=== PATIENT | female | born 1955 | race Caucasian/White ===

== ENCOUNTER 2017-03-10 19:31 | Inpatient (IN) | payer OTHER ==
[~2017-03-10] VITALS: Ht 167.6 cm; Wt 73.1 kg
[~2017-03-10 19:31] MED LIST: DOCU-144 PO; HYDR-2086 PO; MELO-110 PO; PANT40TA3 PO; VALS80TA2 PO; ZOF8 PO
[2017-03-10] MEDS ORDERED: METOPROLOL 25 MG TAB PO ONE (20:00)
[2017-03-10] MEDS ORDERED: METOPROLOL 5 MG INJ IV ONE ×2 (20:00→21:00)
[2017-03-10] MEDS ORDERED: ERGO500037 PO (20:05)
[2017-03-10] MEDS ORDERED: IBUP400T22 PO (20:05)
[2017-03-10] MEDS ORDERED: CLIN-73 PO (20:07)
[2017-03-10] MEDS ORDERED: ASPI-664 PO (20:08)
[2017-03-10] MEDS ORDERED: CARV12.579 PO (20:08)
[2017-03-10] MEDS ORDERED: ATOR20TA38 PO (20:09)
[2017-03-10] MEDS ORDERED: LOSA50TA6 PO (20:09)
[2017-03-10] MEDS ORDERED: FENO145T19 PO (20:10)
[2017-03-10 20:20] LABS: ADD SCAN DIFF NO
[2017-03-10 20:25] LABS: BASOPHIL # 0.1 10^3/ul (0.0-0.1); BASOPHILS % 0.9 % (0.0-2.0); EOSINOPHILS # 0.1 10^3/ul (0.0-0.5); EOSINOPHILS % 0.5 % (0.0-7.0); HEMATOCRIT 38.7 % (37.0-47.0); HEMOGLOBIN 12.8 g/dl (12.0-16.0); LYMPHOCYTES # 2.7 10^3/ul (0.8-2.9); MEAN CORPUSCULAR HEMOGLOBIN 28.4 pg (29.0-33.0); MEAN CORPUSCULAR HGB CONC 33.1 g/dl (32.0-37.0); MEAN CORPUSCULAR VOLUME 85.8 fl (82.0-101.0); MEAN PLATELET VOLUME 10.1 fl (7.4-10.4); MONOCYTE # 0.7 10^3/ul (0.3-0.9); MONOCYTES % 7.5 % (0.0-11.0); NEUTROPHIL # 5.8 10^3/ul (1.6-7.5); NEUTROPHILS % 61.8 % (39.0-77.0); PLATELET COUNT 323 10^3/UL (140-415); RED BLOOD COUNT 4.51 10^6/ul (4.20-5.40); RED CELL DISTRIBUTION WIDTH 12.3 % (11.5-14.5); WHITE BLOOD COUNT 9.3 10^3/ul (4.8-10.8)
[2017-03-10 20:45] LABS: INR 0.94; PROTIME 12.6 Sec (12.2-14.2)
[2017-03-10 20:46] LABS: PARTIAL THROMBOPLASTIN TIME 28.9 Sec (25.0-35.0)
[2017-03-10 20:48] LABS: ANION GAP 19 (8-16); BLOOD UREA NITROGEN 26 mg/dl (7-20); CALCIUM 9.9 mg/dl (8.4-10.2); CARBON DIOXIDE 24 mmol/L (21-31); CHLORIDE 107 mmol/L (97-110); CREATININE 1.05 mg/dl (0.44-1.00); GLUCOSE 146 mg/dl (70-220); MAGNESIUM 2.1 mg/dl (1.7-2.5); POTASSIUM 3.6 mmol/L (3.5-5.1); SODIUM 146 mmol/L (135-144)
--- NOTE | 2017-03-10 20:51 | RADRPT ---
PROCEDURE: XR Chest. CLINICAL INDICATION: Chest pain. TECHNIQUE: Single frontal view. COMPARISON: None. FINDINGS: The lungs are clear. The heart size is normal. There is no pleural effusion. There is no pneumothorax. IMPRESSION: 1. Normal chest radiograph. RPTAT: QQ .Steev Rich MD, Date Time Electronically viewed and signed by .Steve Rich MD, on 03/10/2017 20:51 .R/
[2017-03-10 21:00] LABS: TROPONIN-I < 0.012 ng/ml (0.00-0.12)
[2017-03-10] MEDS ORDERED: DILTIAZEM-D5W 125MG/125ML DRIP 125 ML IV STA (22:09)
--- NOTE | 2017-03-10 22:18 | ERA ---
ER Documentation Chief Complaint Date/Time DATE: 03/10/17 TIME: 22:11 Chief Complaint chest throbbing nonradiating pain HPI Patient is a 61-year-old female with hypertension who presents with rapid heart rate. The patient said that she did not take her heart medications this morning because her blood pressure was normal. She felt overwhelmed due to her daughter visiting and at 5:30 PM she felt very dizzy. She turned white and had significant sweating. She had nausea and vomiting. She had chills palpitations. She has had no treatment as of yet. Her primary doctor is Dr. Sharma. ROS All systems reviewed and are negative except as per history of present illness. Medications Home Meds Reported Medications Fenofibrate Nanocrystallized* (Fenofibrate*) 145 Mg Tablet, 145 MG PO DAILY, TAB 03/10/17 Atorvastatin Calcium* (Atorvastatin Calcium*) 20 Mg Tablet, 20 MG PO DAILY, #30 TAB 03/10/17 Losartan Potassium* (Losartan Potassium*) 50 Mg Tablet, 50 MG PO DAILY, TAB 03/10/17 Carvedilol* (Carvedilol*) 12.5 Mg Tablet, 12.5 MG PO BID, #60 TAB 03/10/17 Aspirin* (Aspirin* EC) 81 Mg Tablet.dr, 81 MG PO DAILY, TAB 03/10/17 Clindamycin Hcl* (Clindamycin Hcl*) 300 Mg Capsule, 300 MG PO TID for 7 Days, # 21 CAP STOP TAKING 03/10/17 03/10/17 Ibuprofen* (Ibuprofen*) 400 Mg Tablet, 400 MG PO Q6H Y for PAIN, TAB 03/10/17 Ergocalciferol (Vitamin D2) (VITAMIN D2) 50,000 Unit Capsule, 35785 UNIT PO Q7D , CAP 03/10/17 Docusate Sodium* (Colace*) 100 Mg Capsule, 100 MG PO DAILY, CAP 05/03/15 Discontinued Reported Medications Meloxicam* (Mobic*) 15 Mg Tablet, 15 MG PO DAILY, TAB 05/03/15 Valsartan* (Diovan*) 80 Mg Tablet, 80 MG PO DAILY, TAB 05/03/15 Discontinued Scripts Hydrocodone Bit-Acetaminophen* (Vicodin*) 5-300 Tab, 1 EACH PO Q4H Y for PAIN, # 10 TAB Prov:ABIMAEL DO MD 05/03/15 Ondansetron Hcl* (Zofran* ODT) 8 mg -ODT Tab.disper, 8 MG PO Q6 Y for NAUSEA AND /OR VOMITING, #10 TAB Prov:ABIMAEL DO MD 05/03/15 Pantoprazole* (Protonix*) 40 Mg Tablet.dr, 40 MG PO DAILY, #20 TAB Prov:ABIMAEL DO MD 05/03/15 Allergies Allergies: Coded Allergies: No Known Allergies (Verified Allergy, Mild, 03/10/17) PMhx/Soc History of Surgery: Yes (APPENDECTOMY,REMOVAL OF CYST ON R BREAST, TUBAL LIGATION) Anesthesia Reaction: No Hx Neurological Disorder: No Hx Respiratory Disorders: Yes (ASTHMA) Hx Cardiac Disorders: Yes (HTN,HIGH CHOLESTEROL) Hx Psychiatric Problems: No Hx Miscellaneous Medical Probl: Yes (SKIN CANCER (NOSE) CARCINOMA?, ARTHRITIS) Hx Alcohol Use: Yes (occasionally) Hx Substance Use: No Hx Tobacco Use: Yes (quit) Smoking Status: Former smoker FmHx Family History: coronary disease, No diabetes Physical Exam Vitals Vital Signs Date Time Temp Pulse Resp B/P Pulse Ox O2 Delivery O2 Flow Rate FiO2 03/10/17 21:00 144 15 122/112 99 Nasal Cannula 2.0 03/10/17 20:46 154 12 101/84 100 Nasal Cannula 2.0 03/10/17 20:30 148 22 96/80 98 Nasal Cannula 2.0 03/10/17 20:15 169 26 104/77 99 Nasal Cannula 2.0 03/10/17 20:09 Nasal Cannula 2 03/10/17 20:00 204 20 103/77 100 Nasal Cannula 2.0 03/10/17 19:51 98.2 212 18 119/69 100 Physical Exam Const: Moderate distress Head: Atraumatic Eyes: Normal Conjunctiva ENT: Normal External Ears, Nose and Mouth. Neck: Full range of motion..~ No meningismus. Resp: Clear to auscultation bilaterally Cardio: Tachycardic rate, irregular, without murmur Abd: Soft, non tender, non distended. Normal bowel sounds Skin: No petechiae or rashes Back: No midline or flank tenderness Ext: No cyanosis, or edema Neur: Awake and alert Psych: Normal Mood and Affect Result Diagram: 03/10/17200403/10/172004 Results 24 hrs Laboratory Tests Test 03/10/17 20:05 White Blood Count 9.310^3/ul Red Blood Count 4.5110^6/ul Hemoglobin 12.8g/dl Hematocrit 38.7% Mean Corpuscular Volume 85.8fl Mean Corpuscular Hemoglobin 28.4pg Mean Corpuscular Hemoglobin Concent 33.1g/dl Red Cell Distribution Width 12.3% Platelet Count 85953^3/UL Mean Platelet Volume 10.1fl Neutrophils % 61.8% Lymphocytes % 29.0% Monocytes % 7.5% Eosinophils % 0.5% Basophils % 0.9% Nucleated Red Blood Cells % 0.0/100WBC Neutrophils # 5.810^3/ul Lymphocytes # 2.710^3/ul Monocytes # 0.710^3/ul Eosinophils # 0.110^3/ul Basophils # 0.110^3/ul Nucleated Red Blood Cells # 0.010^3/ul Prothrombin Time 12.6Sec Prothrombin Time Ratio 1.0 INR International Normalized Ratio 0.94 Activated Partial Thromboplast Time 28.9Sec Sodium Level 146mmol/L Potassium Level 3.6mmol/L Chloride Level 107mmol/L Carbon Dioxide Level 24mmol/L Anion Gap 19 Blood Urea Nitrogen 26mg/dl Creatinine 1.05mg/dl Glucose Level 146mg/dl Calcium Level 9.9mg/dl Magnesium Level 2.1mg/dl Troponin I < 0.012ng/ml Thyroid Stimulating Hormone (TSH) 1.110MIU/L Free Thyroxine 1.11ng/dl Current Medications Medications (Trade) Dose Ordered Sig/Yanna Route PRN Reason Start Time Stop Time Status Last Admin Dose Admin Metoprolol Tartrate (Lopressor) 5 mg ONCE ONCE IV 03/10/17 20:00 03/10/17 20:01 DC 03/10/17 20:13 Metoprolol Tartrate (Lopressor) 25 mg ONCE ONCE PO 03/10/17 20:00 03/10/17 20:01 DC 03/10/17 20:17 Metoprolol Tartrate 5 mg 5 mg ONCE ONCE IV 03/10/17 21:00 03/10/17 21:01 DC 03/10/17 20:51 Diltiazem HCl (Cardizem-D5W 125 Mg/125 ml Drip) 125 ml @ 5 mls/hr ONCE STAT IV 03/10/17 22:09 03/11/17 23:08 Procedures/MDM EKG #1 read by me: Rate/Rhythm: Atrial fibrillation with rapid ventricular response Intervals: Normal Impression: A. fib with RVR without ischemia EKG #2 read by me: Rate/Rhythm: Atrial fibrillation with rapid ventricular response Intervals: Normal Impression: A. fib with RVR without ischemia Chest x-ray shows no pneumonia or pneumothorax per radiology. Patient is a 61-year-old female with hypertension who presents with new onset atrial fibrillation. She also has atrial fibrillation with rapid ventricular response. She was given 2 doses of metoprolol without much effect. She needs to be placed on a diltiazem drip. She will need admission to the hospital for rate control and possibly rhythm control. I spoke with Dr. Alberto as the patient has reg[employer] insurance and the patient will be admitted to a telemetry bed. I spoke with Dr. Williamson for consultation. I doubt acute coronary syndrome, pneumonia, pneumothorax, pulmonary embolism, or aortic dissection. Critical Care: Time: 35 minutes excluding all billable procedures. Treatments/Evaluations: Close monitoring and treatment of unstable vital signs, cardiorespiratory, and neurologic status, while maintaining tight balance of fluid, respiratory, and cardiac interventions. Departure Diagnosis: Primary Impression: Chest pain Qualified Code: R07.9 - Chest pain, unspecified type Additional Impressions: New onset atrial fibrillation Atrial fibrillation with rapid ventricular response Condition: CHEVY Liu MD Mar 10, 2017 22:18
[2017-03-10] MEDS ORDERED: ONDANSETRON 4 MG INJ IV PRN ×2 (22:30→23:30)
[2017-03-10] MEDS ORDERED: ACETAMINOPHEN 500 MG TAB PO PRN (23:30)
[2017-03-10 23:48] VITALS: PULSE 161
[2017-03-10 23:49] VITALS: BP 99/67; PULSE 142; RESP 17
[2017-03-10 23:55] VITALS: Ht 167.6 cm; Wt 73.1 kg
[2017-03-11] VITALS (14 sets, daily range): BP systolic 95–131; BP diastolic 51–82; PULSE 64–144; RESP 19–22
[2017-03-11] MEDS: 1/2 NS + KCL 20 MEQ 1,000 ML IV SCH ×3 (01:02→12:32)
[2017-03-11] MEDS: ZOLPIDEM 5 MG TAB PO PRN ×2 (01:02→22:07)
[2017-03-11] MEDS: ENOXAPARIN 80 MG/0.8 ML SYG SC SCH ×2 (01:12→08:42)
[2017-03-11 03:18] LABS: CK-MB 2.1 ng/ml (0.0-2.4); TROPONIN-I 0.049 ng/ml (0.00-0.12)
[2017-03-11 09:22] LABS: CK-MB 1.79 ng/ml (0.0-2.4); TROPONIN-I 0.055 ng/ml (0.00-0.12)
[2017-03-11] MEDS: ACETAMINOPHEN 325 MG TAB PO PRN ×2 (09:53→17:02)
--- NOTE | 2017-03-11 10:38 | RADRPT ---
Vent Rate: 122 bpm RR Interval: 0 msec DC Interval: 0 msec QRS Duration: 76 msec QT Interval: 300 msec QTC Interval: 427 msec P-R-T [place]: 0 - 38 - 7 degrees Atrial fibrillation with rapid ventricular response Abnormal ECG Electronically Signed By: Elliot Watkins [id number]
--- NOTE | 2017-03-11 12:57 | RADRPT ---
Echocardiogram Report Patient Name: SOFYA JACKSON Gender: Female Date: 1955 Study Date: 11-Mar-2017 Ems Driver: Scottie [facility] Location: 5540 Ref. Physician: MACKENZIE LUGO Quality: Adequate Procedures: Transthoracic echocardiogram with complete 2D, M-Mode, and doppler examination. Indications: New-onset a-fib/flutter. 2D/M Mode Doppler Measurement Value Normal Ranges Measurement Value Normal Ranges LVIDd 2D 3.5 3.5 - 5.6 cm AV Peak Alexander 1.4 m/sec LVIDs 2D 2.8 2.1 - 4.1 cm AV Peak PG 7.4 mmHg LVPWd 2D 1.2 0.6 - 1.1 cm LVOT Peak Alexander 0.9 m/sec IVSd 2D 1.2 0.6 - 1.1 cm LVOT Peak PG 3.2 mmHg AoR Diam 2D 2.9 2.0 - 3.7 cm TR Peak Alexander 2.4 m/sec EDV 2D 50.0 cm3 TR Peak PG 23.6 mmHg ESV 2D 21.5 cm3 RVSP 27.0 mmHg LA Dimen 2D 3.2 2.3 - 4.0 cm Findings Left Ventricle: Normal left ventricular systolic function. Normal left ventricular cavity size. Mild concentric left ventricular hypertrophy. Ejection fraction is visually estimated at 60 %. Abnormal Diastolic Function. Right Ventricle: Normal right ventricular size. Normal right ventricular systolic function. Left Atrium: The left atrium is normal in size. Right Atrium: The right atrium is normal in size. Mitral Valve: Mild mitral leaflet calcification. Mild mitral annular calcification. Mild mitral valve regurgitation. Aortic Valve: Normal appearance of the aortic valve. No significant aortic stenosis or insufficiency. Tricuspid Valve: Normal appearance of the tricuspid valve. Estimated peak PA systolic pressure 27 mmHg. There is mild to moderate tricuspid regurgitation. Pericardium: Normal pericardium with no significant pericardial effusion. Aorta: Normal aortic root. IVC: Normal size and normal respiratory collapse consistent with normal right atrial pressure. Conclusions Normal left ventricular systolic function. Normal left ventricular cavity size. Mild concentric left ventricular hypertrophy. Ejection fraction is visually estimated at 60 %. Abnormal Diastolic Function. Normal right ventricular size. Normal right ventricular systolic function. The left atrium is normal in size. The right atrium is normal in size. Mild mitral valve regurgitation. No significant aortic stenosis or insufficiency. Estimated peak PA systolic pressure 27 mmHg. There is mild to moderate tricuspid regurgitation. Normal pericardium with no significant pericardial effusion. Electronically Signed By: Derick Guidry 11-Mar-2017 12:56:12 -0700 Patient Name: SOFYA JACKSON Study Date: 11-Mar-2017 [id number]
--- NOTE | 2017-03-11 13:02 | HP ---
Date/Time of Note Date/Time of Note DATE: 03/11/17 TIME: 12:59 Assessment/Plan VTE Prophylaxis VTE Prophylaxis Intervention: LMWH Lines/Catheters IV Catheter Type (from Nrsg): Peripheral IV Urinary Cath still in place: No Assessment/Plan Assessment/Plan 1. a fib, relatively normal echo, cont rate control (b) plan anticoag asa vs other, await cardiology opinion 2. L leg sciatica, weight loss and strengthening recommended 3. proph: lovenox HPI/ROS Admit Date/Time Admit Date/Time Mar 10, 2017 at 22:10 Hx of Present Illness patient with dizziness,adn palpitations, felt unwell, then came to er denies specific chesst pain ROS 5 systems reviewd found to be revealing only for L leg sciatica PMH/Family/Social Past Medical History 1. sciatica 2. htn Past Surgical History 1. hysterectom y Social History Alcohol Use: rarely Smoking Status: Never smoker Drug Use: none Exam/Review of Systems Vital Signs Vitals Vital Signs Date Time Temp Pulse Resp B/P Pulse Ox O2 Delivery O2 Flow Rate FiO2 03/11/17 12:27 99 03/11/17 12:10 98.0 20 118/81 96 03/11/17 00:05 Nasal Cannula 2.0 Intake and Output 03/10/17 03/10/17 03/11/17 15:00 23:00 07:00 Intake Total 850 ml Balance 850 ml Exam Constitutional: alert, oriented Head: atraumatic, normocephalic ENMT: mucosa pink and moist, nl nasal mucosa & septum Neck: non-tender, supple Respiratory: clear to auscultation Cardiovascular: irregular rhythm Gastrointestinal: non-tender, soft Extremities: normal pulses Neurological: [employer] II-XII intact, nl strength Labs Result Diagram: 03/10/17200403/10/172004 Medications Medications Current Medications Potassium Chloride/Sodium Chloride (1/2 NS + KCl 20 Meq) 1,000 ml @ 100 mls/hr Q10H IV Last administered on 03/11/17t 12:32; Admin Dose 100 MLS/HR; Start at 23:30 Ondansetron HCl (Zofran Inj) 4 mg Q6H PRN IV NAUSEA AND/OR VOMITING; Start at 23:30 Acetaminophen (Tylenol Tab) 1,000 mg Q6H PRN PO FEVER GREATER THAN 100.6; Start 03/10/17 at 23:30 Enoxaparin Sodium (Lovenox) 75 mg Q12 SC Last administered on 03/11/17t 08:42; Admin Dose 75 MG; Start 03/10/17 at 23:30 BONNIE HARTMANN MD Mar 11, 2017 13:02
[2017-03-11] MEDS ORDERED: DILTIAZEM (CD) 120 MG CAP PO SCH (13:18)
--- NOTE | 2017-03-11 13:30 | CONS ---
Date/Time of Note Date/Time of Note DATE: 03/11/17 TIME: 13:22 Assessment/Plan Assessment/Plan Additional Assessment/Plan Atrial fibrillation with rapid ventricular rates, improved Preserved left ventricular systolic function with mild left ventricular hypertrophy Mitral and tricuspid valve regurgitation Hypertension Anxiety Depression Fibromyalgia -Patient with improvement in heart rates on IV Cardizem. Currently on 5 mg an hour. Would start p.o. Cardizem and DC IV. Would hold other antihypertensive medications at the current time given current blood pressure trend. Extensive discussion had with her patient regarding risk of increased thromboembolic events in the setting of atrial fibrillation. Patient agreed with anticoagulation. Will start Eliquis 5 mg twice daily. Case management for insurance approval. If heart rates well controlled on oral medication regimen and patient remains asymptomatic, no further inpatient cardiac workup needed. Consultation Date/Type/Reason Admit Date/Time Mar 10, 2017 at 22:10 Type of Consultation: cv Reason for Consultation Palpitations Hx of Present Illness This is a 61-year-old female with past medical history of hypertension, anxiety , depression, fibromyalgia who presents with palpitations and dizziness yesterday afternoon. Patient under significant stress over the past few days with family visiting as well as recent . Yesterday, anxiety increased and she had onset of palpitations associated with dizziness and lightheadedness. She then felt nauseous with vomiting. She was brought to the emergency room and found to be in atrial fibrillation with rapid ventricular rates. With IV Cardizem, her rates improved as well as her symptoms. She currently denies any chest pain, palpitations or shortness of breath and feeling much better. She denies any dizziness or lightheadedness. 12 point review of systems was performed with all pertinent positives and negatives mentioned above and all else is negative Past Medical History Depression Anxiety Fibromyalgia Medical History: hypertension Past Surgical History Multiple B[employer] surgeries, skin cancer removal 19 years ago, orthopedic surgery, appendectomy Family History Significant Family History: no pertinent family hx Social History Alcohol Use: rarely Smoking Status: Never smoker Drug Use: none Other Social History Lives at home Exam/Review of Systems Vital Signs Vitals Vital Signs Date Time Temp Pulse Resp B/P Pulse Ox O2 Delivery O2 Flow Rate FiO2 03/11/17 12:27 99 03/11/17 12:10 98.0 20 118/81 96 03/11/17 00:05 Nasal Cannula 2.0 Intake and Output 03/10/17 03/10/1703/11/17 15:00 23:00 07:00 Intake Total 850 ml Balance 850 ml Exam Eating lunch, no apparent distress, daughter at bedside Constitutional: alert, oriented, well developed Head: normocephalic Neck: supple Respiratory: other (Coarse breath sounds bilaterally, no wheezing) Cardiovascular: irregular rhythm, other (S1-S2 heard), systolic murmur Gastrointestinal: bowel sounds, non-tender, other (No guarding), soft Extremities: edema (No edema or cyanosis seen) Results Result Diagram: 03/10/17200403/10/172004 Results 24 hrs Laboratory Tests Test 03/10/17 20:05 03/11/17 02:10 03/11/17 07:55 White Blood Count 9.3 Red Blood Count 4.51 Hemoglobin 12.8 Hematocrit 38.7 Mean Corpuscular Volume 85.8 Mean Corpuscular Hemoglobin 28.4 L Mean Corpuscular Hemoglobin Concent 33.1 Red Cell Distribution Width 12.3 Platelet Count 323 Mean Platelet Volume 10.1 # Neutrophils % 61.8 Lymphocytes % 29.0 Monocytes % 7.5 Eosinophils % 0.5 Basophils % 0.9 Nucleated Red Blood Cells % 0.0 Neutrophils # 5.8 Lymphocytes # 2.7 Monocytes # 0.7 Eosinophils # 0.1 Basophils # 0.1 Nucleated Red Blood Cells # 0.0 Prothrombin Time 12.6 Prothrombin Time Ratio 1.0 INR International Normalized Ratio 0.94 Activated Partial Thromboplast Time 28.9 Sodium Level 146 H Potassium Level 3.6 Chloride Level 107 Carbon Dioxide Level 24 Anion Gap 19 H Blood Urea Nitrogen 26 H Creatinine 1.05 H Glucose Level 146 Calcium Level 9.9 Magnesium Level 2.1 Troponin I < 0.012 0.049 0.055 Thyroid Stimulating Hormone (TSH) 1.110 Free Thyroxine 1.11 Creatine Kinase 107 87 Creatine Kinase Index 2.0 2.1 Creatinine Kinase MB (Mass) 2.10 1.79 Medications Medications Current Medications Potassium Chloride/Sodium Chloride (1/2 NS + KCl 20 Meq) 1,000 ml @ 100 mls/hr Q10H IV Last administered on 03/11/17t 12:32; Admin Dose 100 MLS/HR; Start at 23:30 Ondansetron HCl (Zofran Inj) 4 mg Q6H PRN IV NAUSEA AND/OR VOMITING; Start at 23:30 Acetaminophen (Tylenol Tab) 1,000 mg Q6H PRN PO FEVER GREATER THAN 100.6; Start 03/10/17 at 23:30 Diltiazem HCl (Cardizem Cd) 120 mg BID PO ; Start 03/11/17 at 21:00; Status UNV Diltiazem HCl (Cardizem Cd) 120 mg 1318 ONCE PO ; Start 03/11/17 at 13:18; Stop 03/11/17 at 13:19; Status UNV Apixaban (Eliquis) 5 mg BID PO ; Start 03/11/17 at 21:00; Status UNV Procedures Procedures ECG done this morning demonstrated atrial fibrillation at 122 bpm, QRS 76 ms, nonspecific ST-T wave abnormality Derick Guidry DO Mar 11, 2017 13:30
[2017-03-11] MEDS: APIXABAN 5 MG TABLET PO SCH (20:33)
[2017-03-11] MEDS: DILTIAZEM (CD) 120 MG CAP PO SCH (20:34)
[2017-03-12] VITALS (7 sets, daily range): BP systolic 103–130; BP diastolic 65–70; PULSE 60–82; RESP 18–21
[2017-03-12] MEDS: 1/2 NS + KCL 20 MEQ 1,000 ML IV SCH (05:30)
[2017-03-12] MEDS: DILTIAZEM (CD) 120 MG CAP PO SCH (08:52)
[2017-03-12] MEDS: APIXABAN 5 MG TABLET PO SCH (08:52)
[2017-03-12] MEDS: POLYETHYLENE GLYCOL 17 GM PACKET PO SCH ×2 (10:53→10:58)
--- NOTE | 2017-03-12 11:28 | CONS ---
Date/Time of Note Date/Time of Note DATE: 03/12/17 TIME: 11:26 Assessment/Plan Assessment/Plan Additional Assessment/Plan Paroxysmal atrial fibrillation with rapid ventricular rates, currently sinus rhythm Preserved left ventricular systolic function with mild left ventricular hypertrophy Mitral and tricuspid valve regurgitation Hypertension Anxiety Depression Fibromyalgia -Patient converted to sinus rhythm yesterday. Heart rate well controlled in sinus. Blood pressure trend remained stable. Would DC home on Cardizem 180 mg daily, would DC home dose of Coreg. Consider losartan at a lower dose if blood pressure tolerates. I have requested case management involvement for approval of anticoagulation. Otherwise no further inpatient cardiac workup needed at the current time. Consultation Date/Type/Reason Admit Date/Time Mar 10, 2017 at 22:10 Initial Consult Date Type of Consultation: cv 24 HR Interval Summary Free Text/Dictation Feeling better, denies chest pain or shortness of breath or palpitations Exam/Review of Systems Vital Signs Vitals Vital Signs Date Time Temp Pulse Resp B/P Pulse Ox O2 Delivery O2 Flow Rate FiO2 03/12/17 08:36 98.0 66 18 130/69 98 03/11/17 00:05 Nasal Cannula 2.0 Intake and Output 03/11/17 03/11/17 03/12/17 15:00 23:00 07:00 Intake Total 620 ml Balance 620 ml Exam No apparent distress Constitutional: alert, oriented Head: normocephalic Neck: supple Respiratory: clear to auscultation, normal air movement Cardiovascular: other (S1-S2 heard), regular rate and rhythm Gastrointestinal: bowel sounds, non-tender, soft Extremities: other (No edema) Results Result Diagram: 03/10/17200403/10/172004 Medications Medications Current Medications Potassium Chloride/Sodium Chloride (1/2 NS + KCl 20 Meq) 1,000 ml @ 100 mls/hr Q10H IV Last administered on 03/11/17t 12:32; Admin Dose 100 MLS/HR; Start at 23:30 Ondansetron HCl (Zofran Inj) 4 mg Q6H PRN IV NAUSEA AND/OR VOMITING; Start at 23:30 Acetaminophen (Tylenol Tab) 1,000 mg Q6H PRN PO FEVER GREATER THAN 100.6; Start 03/10/17 at 23:30 Diltiazem HCl (Cardizem Cd) 120 mg BID PO Last administered on 03/12/17 08:52 ; Admin Dose 120 MG; Start 03/11/17 at 21:00 Apixaban (Eliquis) 5 mg BID PO Last administered on 03/12/17 08:52; Admin Dose 5 MG; Start 03/11/17 at 21:00 Polyethylene Glycol (Miralax) 17 gm DAILY PO ; Start 03/12/17 at 11:00 Derick Guidry DO Mar 12, 2017 11:28
--- NOTE | 2017-03-12 12:19 | PDOCDIS ---
Discharge Instructions CONDITION Patient Condition: Good HOME CARE INSTRUCTIONS: Diet Instructions: 2gm NaSpecial Diet: cardiac diet ACTIVITY: Activity Restrictions: Slowly Increase Activity SCHOOL/WORK RELEASE May return to School/Work with: No Restrictions BONNIE HARTMANN MD Mar 12, 2017 12:19
--- NOTE | 2017-03-12 12:19 | PN ---
Date/Time of Note Date/Time of Note DATE: 03/12/17 TIME: 12:18 Assessment/Plan VTE Prophylaxis VTE Prophylaxis Intervention: ambulation Lines/Catheters IV Catheter Type (from Nrs): Peripheral IV Urinary Cath still in place: No Assessment/Plan Assessment/Plan 1. cards: paroxysmal a fib , no wspont covert to ns, d/c home with dilt Subjective 24 Hr Interval Summary Free Text/Dictation no complaints, doing well Exam/Review of Systems Vital Signs Vitals Vital Signs Date Time Temp Pulse Resp B/P Pulse Ox O2 Delivery O2 Flow Rate FiO2 03/12/17 11:43 98.1 67 18 127/70 98 03/11/17 00:05 Nasal Cannula 2.0 Intake and Output 03/11/17 03/11/17 03/12/17 15:00 23:00 07:00 Intake Total 620 ml Balance 620 ml Exam Constitutional: alert Respiratory: clear to auscultation Cardiovascular: regular rate and rhythm Results Result Diagram: 03/10/17200403/10/172004 Medications Medications Current Medications Potassium Chloride/Sodium Chloride (1/2 NS + KCl 20 Meq) 1,000 ml @ 100 mls/hr Q10H IV Last administered on 03/11/17 12:32; Admin Dose 100 MLS/HR; Start at 23:30 Ondansetron HCl (Zofran Inj) 4 mg Q6H PRN IV NAUSEA AND/OR VOMITING; Start at 23:30 Acetaminophen (Tylenol Tab) 1,000 mg Q6H PRN PO FEVER GREATER THAN 100.6; Start 03/10/17 at 23:30 Diltiazem HCl (Cardizem Cd) 120 mg BID PO Last administered on 03/12/17 08:52 ; Admin Dose 120 MG; Start 03/11/17 at 21:00 Apixaban (Eliquis) 5 mg BID PO Last administered on 03/12/17 08:52; Admin Dose 5 MG; Start 03/11/17 at 21:00 Polyethylene Glycol (Miralax) 17 gm DAILY PO ; Start 03/12/17 at 11:00 BONNIE HARTMANN MD Mar 12, 2017 12:18
[2017-03-12] MEDS ORDERED: APIX5TAB PO (12:21)
[2017-03-12] MEDS ORDERED: DILT180C75 PO (12:21)
--- NOTE | 2017-03-12 12:23 | DS ---
Date/Time of Note Date/Time of Note DATE: 03/12/17 TIME: 12:22 Discharge Summary Admission/Discharge Info Admit Date/Time Mar 10, 2017 at 22:10 Discharge Date/Time 03/12/2017 Discharge Diagnosis 1/ paroxysmal atrial fibrillation, spontaneously converted to normal sinus rhythm Patient Condition: Good Hx of Present Illness patient with dizziness,adn palpitations, felt unwell, then came to er denies specific chesst pain Hospital Course juan carlos admrobertde with a fib in ra[piod response, was commenced on diltiazem, rate controlled and psontaneously converted to sinus rhythm. Her echo was unremarkable Home Meds Active Scripts Diltiazem Hcl* (Cardizem CD*) 180 Mg Cap.sr.24h, 180 MG PO DAILY for 30 Days, # 30 CAP Prov:BONNIE HARTMANN MD 03/12/17 Apixaban* (Eliquis*) 5 Mg Tablet, 5 MG PO BID for 30 Days, #60 TAB Prov:BONNIE HARTMANN MD 03/12/17 Reported Medications Fenofibrate Nanocrystallized* (Fenofibrate*) 145 Mg Tablet, 145 MG PO DAILY, TAB 03/10/17 Atorvastatin Calcium* (Atorvastatin Calcium*) 20 Mg Tablet, 20 MG PO DAILY, #30 TAB 03/10/17 Losartan Potassium* (Losartan Potassium*) 50 Mg Tablet, 50 MG PO DAILY, TAB 03/10/17 Carvedilol* (Carvedilol*) 12.5 Mg Tablet, 12.5 MG PO BID, #60 TAB 03/10/17 Aspirin* (Aspirin* EC) 81 Mg Tablet.dr, 81 MG PO DAILY, TAB 03/10/17 Clindamycin Hcl* (Clindamycin Hcl*) 300 Mg Capsule, 300 MG PO TID for 7 Days, # 21 CAP STOP TAKING 03/10/17 03/10/17 Ibuprofen* (Ibuprofen*) 400 Mg Tablet, 400 MG PO Q6H Y for PAIN, TAB 03/10/17 Ergocalciferol (Vitamin D2) (VITAMIN D2) 50,000 Unit Capsule, 41975 UNIT PO Q7D , CAP 03/10/17 Docusate Sodium* (Colace*) 100 Mg Capsule, 100 MG PO DAILY, CAP 05/03/15 Discontinued Reported Medications Meloxicam* (Mobic*) 15 Mg Tablet, 15 MG PO DAILY, TAB 05/03/15 Valsartan* (Diovan*) 80 Mg Tablet, 80 MG PO DAILY, TAB 05/03/15 Discontinued Scripts Hydrocodone Bit-Acetaminophen* (Vicodin*) 5-300 Tab, 1 EACH PO Q4H Y for PAIN, # 10 TAB Prov:ABIMAEL DO MD 05/03/15 Ondansetron Hcl* (Zofran* ODT) 8 mg -ODT Tab.disper, 8 MG PO Q6 Y for NAUSEA AND /OR VOMITING, #10 TAB Prov:ABIMAEL DO MD 05/03/15 Pantoprazole* (Protonix*) 40 Mg Tablet., 40 MG PO DAILY, #20 TAB Prov:ABIMAEL DO MD 05/03/15 Follow-up Plan 1. pcp 1 to [address] hernandez next available Primary Care Provider Senthil Chance Time spent on discharge: > 30 minutes BONNIE HARTMANN MD Mar 12, 2017 12:23
== END 2017-03-12 13:54 | disposition home or self-care (01) | DRG 310 ==
LOC: E/R 19:31 → MS4 22:10
PROVIDERS: ADMIT Internal Medicine; ATTEND Internal Medicine
DX: I48.0 Paroxysmal atrial fibrillation (principal); I08.1 Rheumatic disorders of both mitral and tricuspid valves; I10 Essential (primary) hypertension; E78.5 Hyperlipidemia, unspecified; M54.32 Sciatica, left side; F41.9 Anxiety disorder, unspecified; F32.9 Major depressive disorder, single episode, unspecified; M79.7 Fibromyalgia; Z79.82 Long term (current) use of aspirin; Z79.02 Long term (current) use of antithrombotics/antiplatelets; Z87.891 Personal history of nicotine dependence; Z85.828 Personal history of other malignant neoplasm of skin
CPT/HCPCS: 36415; 71010; 80048; 82550; 82553; 83735; 84439; 84443; 84484; 85025; 85610; 85730; 93005; 93306; 96374; 96375; 96376; J2405; J3480

== ENCOUNTER 2017-07-18 11:52 | Emergency (ER) | payer MEDICARE, OTHER ==
[~2017-07-18] VITALS: Wt 68.6 kg
[~2017-07-18 11:52] MED LIST changes: +APIX5TAB PO; +ATOR20TA38 PO; +DILT180C75 PO; +ERGO500037 PO; +FENO145T19 PO; -HYDR-2086 PO; +IBUP400T22 PO; +LOSA50TA6 PO; -MELO-110 PO; -PANT40TA3 PO; -VALS80TA2 PO; -ZOF8 PO
--- NOTE | 2017-07-18 12:41 | ERD ---
ER Documentation Chief Complaint Chief Complaint states bleeding frm varicose vein rle, on blood thnr, bleeding controlled. HPI This is a 62-year-old female presents the emergency room with from a varicose vein to the medial aspect of the right lower extremity. The patient is currently taking Eliquis for A. fib. She denies any other bleeding or bruising. She denies any recent falls or trauma. She had bleeding on Wednesday and bleeding again today when she tried to take a warm bath. The bleeding is controlled at this point. ROS All systems reviewed and are negative except as per history of present illness. Medications Home Meds Active Scripts Diltiazem Hcl* (Cardizem CD*) 180 Mg Cap.sr.24h, 180 MG PO DAILY for 30 Days, # 30 CAP Prov:BONNIE HARTMANN MD 03/12/17 Apixaban* (Eliquis*) 5 Mg Tablet, 5 MG PO BID for 30 Days, #60 TAB Prov:BONNIE HARTMANN MD 03/12/17 Reported Medications Fenofibrate Nanocrystallized* (Fenofibrate*) 145 Mg Tablet, 145 MG PO DAILY, TAB 03/10/17 Atorvastatin Calcium* (Atorvastatin Calcium*) 20 Mg Tablet, 20 MG PO DAILY, #30 TAB 03/10/17 Losartan Potassium* (Losartan Potassium*) 50 Mg Tablet, 50 MG PO DAILY, TAB 03/10/17 Ibuprofen* (Ibuprofen*) 400 Mg Tablet, 400 MG PO Q6H Y for PAIN, TAB 03/10/17 Ergocalciferol (Vitamin D2) (VITAMIN D2) 50,000 Unit Capsule, 58446 UNIT PO Q7D , CAP 03/10/17 Docusate Sodium* (Colace*) 100 Mg Capsule, 100 MG PO DAILY, CAP 05/03/15 Allergies Allergies: Coded Allergies: No Known Allergies (Verified Allergy, Mild, 03/10/17) PMhx/Soc History of Surgery: Yes (appendectomy, cholecystectomy, skin cancer on nose, cyst in R breast remove) Anesthesia Reaction: Yes (needs low doses) Hx Neurological Disorder: No Hx Respiratory Disorders: Yes (asthma, SOB) Hx Cardiac Disorders: Yes (HTN, ) Hx Psychiatric Problems: No (anxiety, depression, panic attacks) Hx Miscellaneous Medical Probl: Yes (high cholesterol, anemia, low vitamin D) Hx Alcohol Use: No Hx Substance Use: No Hx Tobacco Use: No FmHx Family History: No diabetes Physical Exam Vitals Vital Signs Date Time Temp Pulse Resp B/P Pulse Ox O2 Delivery O2 Flow Rate FiO2 07/18/17 11:57 97.8 74 20 140/86 98 Physical Exam General: Well developed, well nourished, no acute distress Head: Normocephalic, atraumatic. Eyes: EOM intact ENT: Moist mucous membranes Neck: Full ROM Respiratory: No respiratory distress Cardiovascular: Good capillary refil Abdominal: Nondistended : Deferred MSK: No edema, no unilateral swelling, 5/5 strength, excellent capillary refill. Skin described below. Neurologic: Alert and oriented, moving all extremities, normal speech, steady gait Skin: There is a small, pinpoint area of the medial aspect of the right ankle that appear to be the source of bleeding from a varicose vein. It is hemostatic at this point, no petechia or purpura noted to the extremity. Psych: Normal mood Procedures/MDM The patient is currently taking Eliquis which is the likely cause of her bleeding. She has no evidence of petechia or purpura to suggest hypercoagulable state or thrombocytopenia. No indication for laboratory stopped at this point. I did discuss outpatient follow-up. She needs to follow -up with her primary care physician and director of pediatric rehabilitation to further discuss outpatient anticoagulation. However given the minimal bleeding at this point no indication for inpatient hospitalization. I would advise to continue her anticoagulant as there is very low risk for clinically significant bleeding given the exam and location of the bleeding. I provided wound care and applied a Surgicel gauze and dressing to the lower extremity. The patient had good capillary refill after dressing application. Supplies were provided to the patient. I discussed return precautions. The patient is safe for discharge. Departure Diagnosis: Primary Impression: Bleeding from varicose vein Condition: Good Patient Instructions: Varicose Vein Surgery Additional Instructions: If you have further bleeding appy pressure as explained in ED. Follow up with your PMD. Call your primary care doctor TOMORROW for an appointment during the next 1 WEEK.Tell the psychiatric secretary that you were referred from this facility.See the doctor sooner or return here if your condition worsens before your appointment time. ALEIDA RAMOS MD Jul 18, 2017 12:41
== END 2017-07-18 12:59 | disposition home or self-care (01) ==
LOC: FTE 11:52
DX: I83.891 Varicose veins of right lower extremity with other complications (principal); I10 Essential (primary) hypertension; J45.909 Unspecified asthma, uncomplicated; Z85.828 Personal history of other malignant neoplasm of skin
CPT/HCPCS: 99282

== ENCOUNTER 2017-08-24 11:35 | Emergency (ER) | payer MEDICARE, OTHER ==
[~2017-08-24] VITALS: Ht 167.6 cm; Wt 67.0 kg
[2017-08-24 11:38] VITALS: Ht 167.6 cm; Wt 67.0 kg
--- NOTE | 2017-08-24 13:25 | ERD ---
ER Documentation Chief Complaint Chief Complaint intermittent bloody stool x 4 days HPI The patient is a 62-year-old female, presenting to the ER because of intermittent bloody stool for the last couple of days. Se had similar symptoms previously when she took Mobic. She recently had a stress test 5 days ago. She denies fever, syncope, near syncope, weakness, neck pain, chest pain, complains of minimal vague abdominal discomfort, pain, diarrhea, constipation. She does not smoke nor drink Past medical history: Dyslipidemia hypertension, paroxysmal atrial fibrillation , hemorrhoids Past surgical history: She had colonoscopy 3 years ago that was unremarkable ROS All systems reviewed and are negative except as per history of present illness. Medications Home Meds Active Scripts Apixaban* (Eliquis*) 5 Mg Tablet, 5 MG PO BID for 30 Days, #60 TAB Prov:BONNIE HARTMANN MD 03/12/17 Reported Medications Montelukast Sodium* (Singulair*) 10 Mg Tablet, 10 MG PO QHS, #30 TAB 08/24/17 Fluoxetine Hcl* (Prozac*) 20 Mg Capsule, 20 MG PO DAILY, CAP 08/24/17 Quetiapine Fumarate* (Seroquel*) 50 Mg Tablet, 50 MG PO HS, TAB 08/24/17 Tolterodine Tartrate* (Detrol LA*) 4 Mg Cap.sr.24h, 4 MG PO DAILY, #30 CAP 08/24/17 Zolpidem Tartrate* (Ambien*) 5 Mg Tablet, 5 MG PO QHS Y for INSOMNIA, #30 TAB 08/24/17 Carvedilol* (Coreg*) 6.25 Mg Tablet, 6.25 MG PO BID, #60 TAB 08/24/17 Atorvastatin Calcium* (Atorvastatin Calcium*) 20 Mg Tablet, 20 MG PO DAILY, #30 TAB 03/10/17 Losartan Potassium* (Losartan Potassium*) 50 Mg Tablet, 50 MG PO DAILY, TAB 03/10/17 Ibuprofen* (Ibuprofen*) 400 Mg Tablet, 400 MG PO Q6H Y for PAIN, TAB 03/10/17 Ergocalciferol (Vitamin D2) (VITAMIN D2) 50,000 Unit Capsule, 05808 UNIT PO Q7D , CAP 03/10/17 Discontinued Reported Medications Fenofibrate Nanocrystallized* (Fenofibrate*) 145 Mg Tablet, 145 MG PO DAILY, TAB 03/10/17 Docusate Sodium* (Colace*) 100 Mg Capsule, 100 MG PO DAILY, CAP 05/03/15 Discontinued Scripts Diltiazem Hcl* (Cardizem CD*) 180 Mg Cap.sr.24h, 180 MG PO DAILY for 30 Days, # 30 CAP Prov:BONNIE HARTMANN MD 03/12/17 Allergies Allergies: Coded Allergies: No Known Allergies (Verified Allergy, Mild, 03/10/17) PMhx/Soc History of Surgery: Yes (appendectomy, cholecystectomy, skin cancer on nose, cyst in R breast remove) Anesthesia Reaction: Yes (needs low doses) Hx Neurological Disorder: No Hx Respiratory Disorders: Yes (asthma, SOB) Hx Cardiac Disorders: Yes (HTN, ) Hx Psychiatric Problems: No (anxiety, depression, panic attacks) Hx Miscellaneous Medical Probl: Yes (high cholesterol, anemia, low vitamin D) Hx Alcohol Use: No Hx Substance Use: No Hx Tobacco Use: No Physical Exam Vitals Vital Signs Date Time Temp Pulse Resp B/P Pulse Ox O2 Delivery O2 Flow Rate FiO2 08/24/17 16:43 98.4 71 16 157/84 98 Room Air 08/24/17 14:23 63 18 123/91 99 Room Air 08/24/17 11:38 97.7 67 19 144/90 99 Physical Exam Const: No acute distress. Head: Atraumatic. Eyes: Normal Conjunctiva. ENT: Normal External Ears, Nose and Mouth. Neck: Full range of motion. No meningismus. Resp: Clear to auscultation bilaterally. Cardio: Regular rate and rhythm. Abd: Soft, non distended, normal bowel sounds, non tender. Skin: No petechiae or rashes. Back: No midline or flank tenderness. Ext: No cyanosis, or edema. Neur: Awake and alert. No focal deficit Psych: Normal Mood and Affect. Rectal: large external hemorrhoid, no active bleeding Result Diagram: 08/24/17 1400 08/24/17 1400 Results 24 hrs Laboratory Tests Test 08/24/17 13:59 08/24/17 14:00 Bedside Urine pH (LAB) 5.5 Bedside Urine Protein (LAB) Negative Bedside Urine Glucose (UA) Negative Bedside Urine Ketones (LAB) Negative Bedside Urine Blood Negative Bedside Urine Nitrite (LAB) Negative Bedside Urine Leukocyte Esterase (L Negative White Blood Count 5.410^3/ul Red Blood Count 4.5410^6/ul Hemoglobin 12.8g/dl Hematocrit 38.2% Mean Corpuscular Volume 84.1fl Mean Corpuscular Hemoglobin 28.2pg Mean Corpuscular Hemoglobin Concent 33.5g/dl Red Cell Distribution Width 12.0% Platelet Count 93523^3/UL Mean Platelet Volume 10.0fl Neutrophils % 56.4% Lymphocytes % 33.8% Monocytes % 7.8% Eosinophils % 0.9% Basophils % 0.9% Nucleated Red Blood Cells % 0.0/100WBC Neutrophils # 3.110^3/ul Lymphocytes # 1.810^3/ul Monocytes # 0.410^3/ul Eosinophils # 0.110^3/ul Basophils # 0.110^3/ul Nucleated Red Blood Cells # 0.010^3/ul Prothrombin Time 14.1Sec Prothrombin Time Ratio 1.1 INR International Normalized Ratio 1.08 Activated Partial Thromboplast Time 33.2Sec Sodium Level 142mmol/L Potassium Level 4.0mmol/L Chloride Level 103mmol/L Carbon Dioxide Level 29mmol/L Anion Gap 14 Blood Urea Nitrogen 17mg/dl Creatinine 0.82mg/dl Glucose Level 92mg/dl Calcium Level 9.3mg/dl Total Bilirubin 0.4mg/dl Direct Bilirubin 0.00mg/dl Indirect Bilirubin 0.4mg/dl Aspartate Amino Transf (AST/SGOT) 19IU/L Alanine Aminotransferase (ALT/SGPT) 38IU/L Alkaline Phosphatase 49IU/L Total Protein 7.0g/dl Albumin 4.1g/dl Globulin 2.90g/dl Albumin/Globulin Ratio 1.41 Lipase 87U/L Procedures/[facility] MEDICAL MAKING DECISION: The patient is a 62-year-old female, presenting with acute hematochezia, most likely due to hemorrhoids The differential diagnoses considered include but are not limited to gastritis, peptic ulcer disease, esophageal varices, Deborah-Bryan tear, carcinoma, polyp, hemorrhoid, fissure, diverticulosis, angiodysplasia. Departure Diagnosis: Primary Impression: Hemorrhoid Condition: Good Comments I discussed the findings with the patient. I advised the patient to follow-up with the primary physician in about 1-2 days, sooner if needed and return if any concern. Disclaimer: Inadvertent spelling and grammatical errors are likely due to EHR/ dictation software use and do not reflect on the overall quality of patient care. Also, please note that the electronic time recorded on this note does not necessarily reflect the actual time of the patient encounter. KAMARI LOBO MD Aug 24, 2017 13:25
[2017-08-24 14:00] LABS: URINE BLOOD (Dip) POC Negative (NEGATIVE)
[2017-08-24 14:25] LABS: BASOPHIL # 0.1 10^3/ul (0.0-0.1); BASOPHILS % 0.9 % (0.0-2.0); EOSINOPHILS # 0.1 10^3/ul (0.0-0.5); EOSINOPHILS % 0.9 % (0.0-7.0); HEMATOCRIT 38.2 % (37.0-47.0); HEMOGLOBIN 12.8 g/dl (12.0-16.0); LYMPHOCYTES # 1.8 10^3/ul (0.8-2.9); LYMPHOCYTES % 33.8 % (15.0-51.0); MEAN CORPUSCULAR HEMOGLOBIN 28.2 pg (29.0-33.0); MEAN CORPUSCULAR HGB CONC 33.5 g/dl (32.0-37.0); MEAN CORPUSCULAR VOLUME 84.1 fl (82.0-101.0); MONOCYTE # 0.4 10^3/ul (0.3-0.9); MONOCYTES % 7.8 % (0.0-11.0); NEUTROPHIL # 3.1 10^3/ul (1.6-7.5); NEUTROPHILS % 56.4 % (39.0-77.0); PLATELET COUNT 255 10^3/UL (140-415); RED BLOOD COUNT 4.54 10^6/ul (4.20-5.40); WHITE BLOOD COUNT 5.4 10^3/ul (4.8-10.8)
[2017-08-24 14:41] LABS: INR 1.08; PROTIME 14.1 Sec (11.9-14.9); PT RATIO 1.1
[2017-08-24 14:42] LABS: PARTIAL THROMBOPLASTIN TIME 33.2 Sec (25.0-35.0)
[2017-08-24 14:44] LABS: ALBUMIN 4.1 g/dl (3.3-4.9); ALBUMIN/GLOBULIN RATIO 1.41; BILIRUBIN,INDIRECT 0.4 mg/dl (0-1.1); BILIRUBIN,TOTAL 0.4 mg/dl (0.2-1.3); CALCIUM 9.3 mg/dl (8.4-10.2); CREATININE 0.82 mg/dl (0.44-1.00)
[2017-08-24] MEDS ORDERED: CARV6.25 PO (14:45)
[2017-08-24] MEDS ORDERED: ZOLP5TAB PO (14:45)
[2017-08-24] MEDS ORDERED: TOLT4CAP PO (14:50)
[2017-08-24] MEDS ORDERED: QUET50TA16 PO (14:50)
[2017-08-24] MEDS ORDERED: MONT10TA21 PO (14:51)
[2017-08-24] MEDS ORDERED: FLUO20CA38 PO (14:51)
[2017-08-24 16:43] VITALS: BP 157/84; PULSE 71; RESP 16; TEMP 98.4
== END 2017-08-24 16:44 | disposition home or self-care (01) ==
LOC: E/R 11:35
DX: K64.4 Residual hemorrhoidal skin tags (principal); I10 Essential (primary) hypertension; J45.909 Unspecified asthma, uncomplicated; Z85.828 Personal history of other malignant neoplasm of skin; Z79.01 Long term (current) use of anticoagulants
CPT/HCPCS: 36415; 80053; 81003; 83690; 85025; 85610; 85730; 86850; 86900; 86901; 99284

== ENCOUNTER 2018-07-20 10:13 | Emergency (ER) | END 2018-07-20 11:40 | disposition home or self-care (01) ==

== ENCOUNTER 2019-04-04 14:26 | Emergency (ER) | payer MEDICARE, OTHER ==
[~2019-04-04] VITALS: Ht 157.5 cm; Wt 75.0 kg
[~2019-04-04 14:26] MED LIST changes: +CARV6.25 PO; -DILT180C75 PO; -DOCU-144 PO; +ERGO500013 PO; -ERGO500037 PO; -FENO145T19 PO; +FLUO20CA38 PO; +IBUP-1541 PO; -IBUP400T22 PO; +LOSA50TA14 PO; -LOSA50TA6 PO; +MONT10TA21 PO; +NPH10OT LEFT EAR; +QUET50TA PO; +TOLT4CAP PO; +ZOLP5TAB PO
[2019-04-04 14:29] VITALS: BP 180/89; PULSE 78; RESP 18; Ht 157.5 cm; Wt 75.0 kg
[2019-04-04] MEDS ORDERED: ONDANSETRON 4 MG INJ IV STA (15:34)
[2019-04-04] MEDS ORDERED: SOD CHLORIDE 0.9% 1,000 ML IV STA (15:34)
[2019-04-04] MEDS ORDERED: LORAZEPAM 2 MG INJ IV ONE (16:00)
[2019-04-04] MEDS ORDERED: SOD CHLORIDE 0.9% 0 ML ONE (16:00)
[2019-04-04] MEDS ORDERED: IOHEXOL 0 ML ONE (16:00)
--- NOTE | 2019-04-04 17:05 | ERD ---
ER Documentation Chief Complaint Chief Complaint vomiting and dizziness today HPI This is a 64-year-old female who presents to the emergency room with multiple complaints. The patient is describing some lightheadedness, occipital headache that is gradual onset moderate and throbbing with elevated blood pressure. She takes blood pressure medication and has been compliant. She also has a remote history of paroxysmal atrial fibrillation and takes anticoagulants. Patient notes significant stressors over the past 24 hours. She states the symptoms are usually associated with social stressors. She denies any chest pain or shor tness of breath but does have some mild nausea. No fevers or chills and no exertional symptoms. ROS All systems reviewed and are negative except as per history of present illness. Medications Home Meds Active Scripts Neomycin/Polymyxin/Hydrocort* (Cortisporin* Otic) 10 Ml Susp, 4 DROP LEFT EAR QID for 7 Days, EA Prov:GIANLUCA SERRANO 07/20/18 Apixaban* (Eliquis*) 5 Mg Tablet, 5 MG PO BID for 30 Days, #60 TAB Prov:BONNIE HARTMANN MD 03/12/17 Reported Medications Montelukast Sodium* (Singulair*) 10 Mg Tablet, 10 MG PO QHS, #30 TAB 08/24/17 Fluoxetine Hcl* (Prozac*) 20 Mg Capsule, 20 MG PO DAILY, CAP 08/24/17 Quetiapine Fumarate* (Seroquel*) 50 Mg Tablet, 50 MG PO HS, TAB 08/24/17 Tolterodine Tartrate* (Detrol LA*) 4 Mg Cap.sr.24h, 4 MG PO DAILY, #30 CAP 08/24/17 Zolpidem Tartrate* (Ambien*) 5 Mg Tablet, 5 MG PO QHS PRN for INSOMNIA, #30 TAB 08/24/17 Carvedilol* (Coreg*) 6.25 Mg Tablet, 6.25 MG PO BID, #60 TAB 08/24/17 Atorvastatin Calcium* (Atorvastatin Calcium*) 20 Mg Tablet, 20 MG PO DAILY, #30 TAB 03/10/17 Losartan Potassium* (Losartan Potassium*) 50 Mg Tablet, 50 MG PO DAILY, TAB 03/10/17 Ibuprofen* (Ibuprofen*) 400 Mg Tablet, 400 MG PO Q6H PRN for PAIN, TAB 03/10/17 Ergocalciferol (Vitamin D2) (VITAMIN D2) 50,000 Unit Capsule, 76705 UNIT PO Q7D, CAP 03/10/17 Allergies Allergies: Coded Allergies: No Known Allergies (Verified Allergy, Mild, 07/20/18) PMhx/Soc History of Surgery: Yes (appendectomy, cholecystectomy, skin cancer on nose, cyst in R breast remove) Anesthesia Reaction: Yes (needs low doses) Hx Neurological Disorder: No Hx Respiratory Disorders: Yes (asthma, SOB) Hx Cardiac Disorders: Yes (HTN, ) Hx Psychiatric Problems: No (anxiety, depression, panic attacks) Hx Miscellaneous Medical Probl: Yes (high cholesterol, anemia, low vitamin D) Hx Alcohol Use: No Hx Substance Use: No Hx Tobacco Use: No Smoking Status: Never smoker FmHx Family History: No diabetes Physical Exam Vitals Vital Signs Date Temp Pulse Resp B/P (MAP) Pulse Ox O2 O2 Flow FiO2 Time Delivery Rate 04/04/19 97.7 69 18 160/83 99 Room Air 15:21 (108) 04/04/19 97.7 78 18 180/89 99 14:29 (119) Physical Exam General: Well developed, well nourished, no acute distress Head: Normocephalic, atraumatic. Eyes: Pupils equally reactive, EOM intact ENT: Moist mucous membranes Neck: Supple, no lymphadenopathy Respiratory: Lungs clear bilaterally, no distress Cardiovascular: RRR, no murmurs, rubs, or gallops Abdominal: Soft, non-tender, non-distended, no peritoneal signs : Deferred MSK: No edema, no unilateral swelling, 5/5 strength Neurologic: Alert and oriented, moving all extremities, normal speech, no focal weakness, no cerebellar signs Skin: No rash Psych: Normal mood Result Diagram: 04/04/19 1515 04/04/19 1515 Results 24 hrs Laboratory Tests Test 04/04/19 15:15 White Blood Count 7.2 10^3/ul Red Blood Count 4.69 10^6/ul Hemoglobin 13.4 g/dl Hematocrit 40.0 % Mean Corpuscular Volume 85.3 fl Mean Corpuscular Hemoglobin 28.6 pg Mean Corpuscular Hemoglobin Concent 33.5 g/dl Red Cell Distribution Width 11.8 % Platelet Count 259 10^3/UL Mean Platelet Volume 9.9 fl Immature Granulocytes % 0.600 % Neutrophils % 82.0 % Lymphocytes % 13.6 % Monocytes % 3.1 % Eosinophils % 0.1 % Basophils % 0.6 % Nucleated Red Blood Cells % 0.0 /100WBC Immature Granulocytes # 0.040 10^3/ul Neutrophils # 5.9 10^3/ul Lymphocytes # 1.0 10^3/ul Monocytes # 0.2 10^3/ul Eosinophils # 0.0 10^3/ul Basophils # 0.0 10^3/ul Nucleated Red Blood Cells # 0.0 10^3/ul Sodium Level 140 mmol/L Potassium Level 4.1 mmol/L Chloride Level 102 mmol/L Carbon Dioxide Level 29 mmol/L Anion Gap 9 Blood Urea Nitrogen 19 mg/dl Creatinine 0.65 mg/dl Est Glomerular Filtrat Rate mL/min > 60 mL/min Glucose Level 120 mg/dl Calcium Level 9.5 mg/dl Troponin I < 0.012 ng/ml Current Medications Medications Dose Sig/Yanna Start Time Status Last (Trade) Ordered Route PRN Stop Time Admin Dose Reason Admin Sodium 1,000 ml @ Q1H STAT 04/04/19 DC 04/04/19 Chloride 1,000 mls/hr IV 15:34 15:46 04/04/19 16:33 Ondansetron 4 mg ONCE STAT 04/04/19 DC 04/04/19 HCl (Zofran IV 15:34 15:40 Inj) 04/04/19 15:35 Lorazepam 0.5 mg ONCE ONCE 04/04/19 DC 04/04/19 (Ativan) IV 16:00 15:40 04/04/19 16:01 Iohexol 0 ml @ ud STK-MED 04/04/19 DC ONCE .ROUTE 16:00 04/04/19 16:01 Sodium 0 ml @ ud STK-MED 04/04/19 DC Chloride ONCE .ROUTE 16:00 04/04/19 16:01 Procedures/MDM EKG, MONITORS, & DIAGNOSTIC IMAGING: CT brain: No acute process per radiologist read EKG: I reviewed and interpreted a 12-lead EKG. Rhythm: Normal sinus rhythm ST Changes: No contiguous ST segment elevations T waves: No contiguous T wave inversions Impression: No evidence of acute cardiac ischemia LAB INTERPRETATION: I reviewed the laboratory testing and it shows no evidence of acute process MEDICAL DECISION MAKING: The patient does have elevated blood pressure, history of anticoagulation use and mild occipital headache. The patient's headache is unlikely related to serious etiology. The patient does not exhibit any clinical signs or symptoms, and has no risk factors to suggest headache etiology such as subarachnoid hemorrhage, acute vertebral or carotid dissection, intracranial mass, epidural, subdural hematoma, dural venous sinus thrombosis, giant cell arteritis, or pseudotumor cerebri. However, given the patient's anticoagulation state CT of the brain to rule out hemorrhage would be reasonable. Patient symptom otology presentation seem very consistent with anxiety reaction and anxiety response. Anxiolysis likely necessary. Low concern for ACS though given patient's age and risk factors EKG and troponin would be reasonable. Reassurance provided. ER COURSE: * Laboratory testing and diagnostic imaging is unrevealing. Patient is feeling better with IV fluids and anxiolysis. At this point I feel the patient can be safely discharged With close primary care follow-up. CONSULTATION: None DISPOSITION PLAN: The patient does not have an identifiable emergent medical condition that wa rrants inpatient hospitalization at this time. The patient is deemed safe for discharge with outpatient follow-up. We discussed follow up with the patient's primary care doctor within 24 to 48 hours as needed. We also discussed return to the emergency room for worsening symptoms or worsening condition. Outpatient referral: None required Discharge Medications: None required Departure Diagnosis: Primary Impression: Anxiety reaction Additional Impressions: Headache Headache type: unspecified Headache chronicity pattern: acute headache Intractability: not intractable Qualified Codes: R51 - Headache Asymptomatic hypertension Condition: Stable Patient Instructions: Self-Care for Headaches, Anxiety Reaction Referrals: [facility] YOU HAVE RECEIVED A MEDICAL SCREENING EXAM AND THE RESULTS INDICATE THAT YOU DO NOT HAVE A CONDITION THAT REQUIRES URGENT TREATMENT IN THE EMERGENCY DEPARTMENT. FURTHER EVALUATION AND TREATMENT OF YOUR CONDITION CAN WAIT UNTIL YOU ARE SEEN IN YOUR DOCTORS OFFICE WITHIN THE NEXT 1-2 DAYS. IT IS YOUR RESPONSIBILITY TO MAKE AN APPOINTMENT FOR [facility]. IF YOU HAVE A PRIMARY DOCTOR --you should call your primary doctor and schedule an appointment IF YOU DO NOT HAVE A PRIMARY DOCTOR YOU CAN CALL OUR PHYSICIAN REFERRAL HOTLINE AT IF YOU CAN NOT AFFORD TO SEE A PHYSICIAN YOU CAN CHOSE FROM THE FOLLOWING [facility] [address] [facility]. [facility] [address] [facility] [address] [facility]. [facility] [address] [facility]. [facility] [address]. [facility]. [address] [facility]. [facility] YOU HAVE RECEIVED A MEDICAL SCREENING EXAM AND THE RESULTS INDICATE THAT YOU DO NOT HAVE A CONDITION THAT REQUIRES URGENT TREATMENT IN THE EMERGENCY DEPARTMENT. FURTHER EVALUATION AND TREATMENT OF YOUR CONDITION CAN WAIT UNTIL YOU ARE SEEN IN YOUR DOCTORS OFFICE WITHIN THE NEXT 1-2 DAYS. IT IS YOUR RESPONSIBILITY TO MAKE AN APPOINTMENT FOR FOLOW-UP CARE. IF YOU HAVE A PRIMARY DOCTOR --you should call your primary doctor and schedule and appointment IF YOU DO NOT HAVE A PRIMARY DOCTOR YOU CAN CALL OUR PHYSICIAN REFERRAL HOTLINE AT . IF YOU CAN NOT AFFORD TO SEE A PHYSICIAN YOU CAN CHOSE FROM THE FOLLOWING [facility] INSTITUTIONS: [facility] [address] [place] [address] [facility] [address] [place] [address] [facility] [address] [place] [address] Additional Instructions: Call your primary care doctor TOMORROW for an appointment during the next 1 WEEK.Tell the real estate legal secretary that you were referred from this facility.See the doctor sooner or return here if your condition worsens before your appointment time. ALEIDA RAMOS MD Apr 04, 2019 17:05
[2019-04-04] MEDS ORDERED: ACETAMINOPHEN 500 MG TAB PO STA (17:18)
[2019-04-04] MEDS ORDERED: ONDA4TAB14 PO (17:19)
== END 2019-04-04 17:24 | disposition home or self-care (01) ==
LOC: E/R 14:26
DX: F41.9 Anxiety disorder, unspecified (principal); I10 Essential (primary) hypertension; J45.909 Unspecified asthma, uncomplicated; R11.2 Nausea with vomiting, unspecified; Z79.01 Long term (current) use of anticoagulants; Z85.828 Personal history of other malignant neoplasm of skin
CPT/HCPCS: 36415; 70450; 80048; 84484; 85025; 93005; 96374; 96375; 99285; J2060; J2405; J7030; Q9967